=== PATIENT | female | born 1990 | race Two or more races ===

== ENCOUNTER 2016-06-28 13:12 | Emergency (ER) | payer OTHER, SELFPAY ==
[~2016-06-28 13:12] MED LIST: AUGMENTIN 875-11 TAB PO; BACTRIM DS TABL1 TAB PO; BIRTH CONTROL PATCH; FIORICET TABLET1 TAB PO; LEVAQUIN250 MG; LEVAQUIN250 MG PO; MOTRIN600 MG PO; NORCO 5/325 TAB1 TAB PO; PHENERGAN25 MG PO; PHENERGAN25 MG/SUPP RC; PYRIDIUM200 MG; PYRIDIUM200 MG PO
[2016-06-28] MEDS ORDERED: NO HOME MEDICATION XX (13:43)
[2016-06-28 14:34] LABS: BASO % 0.1 % (0-2); EOS % 0.3 % (0-7); HCT-HEMATOCRIT 43.2 % (34.0-49.0); HGB-HEMOGLOBIN 15.4 gm/dl (12.0-15.5); IMMATURE GRANULOCYTES ABSOLUTE 0.01 tho/cmm (0-0.03); IMMATURE GRANULOCYTES PERCENT 0.1 % (0-0.3); LYMPH % 6.5 % (20-45); LYMPH ABSOLUTE COUNT 0.5 tho/cmm (0.8-4.5); MCHC MEAN CORPUSCULAR HGB CONC 35.6 % (32.0-36.0); MCV (MEAN CELL VOLUME) 86.9 fl (82.0-96.0); MEAN PLATELET VOLUME 10.2 cmc (9.4-12.4); MONO % 5.7 % (0-12); MONOCYTE ABSOLUTE COUNT 0.4 tho/cmm (0.0-1.2); NEUTROPHIL ABSOLUTE COUNT 6.7 tho/cmm (1.6-8.0); NEUTROPHIL-AUTOMATED 6.7 tho/cmm (1.6-8.0); NEUTROPHILS % 87.3 % (40-80); PLATELET COUNT 205 tho/cmm (150-450); RED BLOOD COUNT 4.97 mil/cmm (4.00-5.20); RED CELL DISTRIBUTION WIDTH 12.2 % (12.4-16.4); WHITE BLOOD COUNT 7.7 tho/cmm (4.0-10.0)
[2016-06-28 14:43] LABS: PREGNANCY-SERUM NEGATIVE (NEGATIVE)
[2016-06-28 14:46] LABS: ALKALINE PHOSPHATASE 37 U/L (33-138); ALT/SGPT 17 U/L (12-78); BILIRUBIN,TOTAL 0.5 mg/dl (0-1.5); BLOOD UREA NITROGEN 12 mg/dl (6-24); CALCIUM 9.2 mg/dl (8.5-10.5); CARBON DIOXIDE-VENOUS 26 mmol/L (22-32); CHLORIDE 108 mmol/l (96-110); CREATININE 0.88 mg/dl (0.50-1.10); GLUCOSE 99 mg/dL (70-110); SODIUM 141 mmol/L (135-145); eGFR VALUE FOR BLACK >90 mL/Min
[2016-06-28 14:49] LABS: ANION GAP 11 mmol/L (0-20); POTASSIUM 4.1 mmol/L (3.7-5.1)
[2016-06-28 14:50] LABS: AST/SGOT 20 U/L (10-40)
[2016-06-28] MEDS ORDERED: ZOFRAN ODT4 MG PO (15:17)
== END 2016-06-28 15:23 ==
LOC: EDMED 13:12
PROVIDERS: Emergency Medicine
DX: E86.0 Dehydration (principal); R11.10 Vomiting, unspecified; R51 Headache; B34.9 Viral infection, unspecified
CPT/HCPCS: J0780; J1200; J7030